=== PATIENT | male | born 1945 | race Caucasian/White ===

== ENCOUNTER 2017-09-22 13:20 | Inpatient (IN) | payer MEDICARE, OTHER ==
[2017-09-22] MEDS ORDERED: Non-Formulary Medication 1 Each (Sennosides [Senna] 2 TAB) PO PRN (15:26)
[2017-09-22] MEDS ORDERED: Albuterol 6.7 GM Inhaler INH PRN (15:26)
[2017-09-22] MEDS ORDERED: Clotrimazole 1% Crm 30 GM Tube TOP PRN (15:26)
[2017-09-22] MEDS ORDERED: Non-Formulary Medication 1 Each (Umeclidinium Brm/Vilanterol Tr [Anoro Ellipta 62.5-25 Mcg IH SCH (15:45)
[2017-09-22] MEDS ORDERED: Acetaminophen/HYDROcodone 325-5 MG Tab PO PRN (15:47)
--- NOTE | 2017-09-22 15:51 | PCM.HP ---
H&P History of Present Illness - General Date of Service: 09/22/17 - Related Data Allergies/Adverse Reactions: Allergies Allergy/AdvReac Type Severity Reaction Status Date / Time atorvastatin [From Lipitor] Allergy Muscle Verified 09/22/17 10:21 Aches metformin Allergy Diarrhea Verified 09/22/17 10:21 pravastatin Allergy Leg Cramps Verified 09/22/17 10:21 simvastatin Allergy Muscle Verified 09/22/17 10:21 Aches Home Medications: Home Meds Acetaminophen/HYDROcodone [[place] 325-5 MG] 1 tab PO Q6HR PRN 09/22/17 [History] Albuterol [Proventil HFA] 2 puff INH Q4H PRN 09/22/17 [History] Aspirin [Ecotrin] 325 mg PO DAILY 09/22/17 [History] Bumetanide 0.5 tab PO BID 09/22/17 [History] Clindamycin HCl 300 mg PO TID 09/22/17 [History] Clopidogrel [Plavix] 75 mg PO DAILY 09/22/17 [History] Clotrimazole [Jock Itch] 1 gm TP Q6HR PRN 09/22/17 [History] Docusate Sodium [Colace] 100 mg PO DAILY 09/22/17 [History] Insulin Aspart [NovoLOG] 2 unit SUBCUT TIDAC 09/22/17 [History] Insulin Glargine,Hum.Rec.Anlog [Lantus Solostar] 8 unit SQ BID 09/22/17 [History ] Metolazone [Zaroxolyn] 1.25 mg PO .EVERYOTHERDAY 09/22/17 [History] Metoprolol Succinate [Toprol XL] 100 mg PO DAILY 09/22/17 [History] Pregabalin [Lyrica] 75 mg PO BID 09/22/17 [History] Sennosides [Senna] 2 tab PO BID PRN 09/22/17 [History] Umeclidinium Brm/Vilanterol Tr [Anoro Ellipta 62.5-25 MCG] 1 puff IH DAILY 09/22 [History] Past Medical History Cardiovascular History: Reports: Afib, CAD Respiratory History: Reports: COPD Endocrine/Metabolic History: Reports: Diabetes, Type II Social & Family History - Family History Family Medical History: Noncontributory H&P Review of Systems - Review of Systems: Review Of Systems: See Below General: Denies: Fever Pulmonary: Denies: Shortness of Breath Cardiovascular: Denies: Chest Pain Gastrointestinal: Denies: Abdominal Pain Exam - Exam Exam: See Below - Vital Signs Vital Signs: Last Vital Signs Temp 36.7 C 09/22/17 14:11 Pulse 64 09/22/17 14:11 Resp 20 09/22/17 14:11 BP 145/80 H 09/22/17 14:11 Pulse Ox 97 09/22/17 14:11 Weight: 94.347 kg - Exam General: Alert, Oriented Neck: Supple Lungs: Decreased Breath Sounds Cardiovascular: Irregular Rhythm GI/Abdominal Exam: Normal Bowel Sounds, Soft, Non-Tender Extremities: No Pedal Edema Skin: Wound (left foot: heel, lataeral foot,medial 1st toe) *Q Meaningful Use (ADM) - VTE *Q VTE Criteria *Q: - Stroke *Q Stroke Criteria *Q: - AMI *Q AMI Criteria *Q: - Problem List (1) Diabetes SNOMED Code(s): 37683780 ICD Code: E11.9 - TYPE 2 DIABETES MELLITUS WITHOUT COMPLICATIONS Status: Acute Current Visit: Yes (2) Osteomyelitis SNOMED Code(s): 29524462 ICD Code: M86.9 - OSTEOMYELITIS, UNSPECIFIED Status: Acute Current Visit : Yes (3) Afib SNOMED Code(s): 46411846 ICD Code: I48.91 - UNSPECIFIED ATRIAL FIBRILLATION Status: Acute Current Visit: Yes (4) CAD (coronary artery disease) SNOMED Code(s): 33362468 ICD Code: I25.10 - ATHSCL HEART DISEASE OF [place] CORONARY ARTERY W/O ANG PCTRS Status: Acute Current Visit: Yes (5) PAD (peripheral artery disease) SNOMED Code(s): 674968720 ICD Code: I73.9 - PERIPHERAL VASCULAR DISEASE, UNSPECIFIED Status: Acute Current Visit: Yes Problem List Initiated/Reviewed/Updated: Yes Orders Last 24hrs: Active Orders 24 hr Category Date Time Status Wound Care [RC] Q8HPRN Care 09/22/17 15:42 Active BASIC METABOLIC PANEL,BMP [CHEM] AM Lab 09/23/17 05:15 Ordered CBC WITH AUTO DIFF [HEME] AM Lab 09/23/17 05:15 Ordered Acetaminophen/HYDROcodone [[place] 325-5 MG] Med 09/22/17 15:47 Ordered 1 tab PO Q6HR PRN Albuterol [Proventil HFA] Med 09/22/17 15:26 Active 0 gm INH Q4H PRN Aspirin [Ecotrin] Med 09/23/17 09:00 Active 325 mg PO DAILY Bumetanide [Bumex] Med 09/23/17 08:00 Active 0.5 mg PO BIDDIURETIC Clopidogrel [Plavix] Med 09/23/17 09:00 Active 75 mg PO DAILY Clotrimazole [Lotrimin AF 1% Crm] Med 09/22/17 15:26 Active 0 gm TOP Q6HR PRN DAPTOmycin [Cubicin] 500 mg Med 09/23/17 15:45 Ordered Sodium Chloride 0.9% [Normal Saline] 50 ml IV Q48H Docusate Sodium [Colace] Med 09/23/17 09:00 Active 100 mg PO DAILY Insulin Aspart [NovoLOG] Med 09/22/17 17:00 Active 2 unit SUBCUT TIDAC Insulin Detemir [Levemir] Med 09/22/17 21:00 Active 8 unit SUBCUT BID Metoprolol Succinate [Toprol XL] Med 09/23/17 09:00 Active 100 mg PO DAILY Pregabalin [Lyrica] Med 09/22/17 21:00 Active 75 mg PO BID Sennosides [Senna] Med 09/22/17 15:26 Ordered 2 tab PO BID PRN Umeclidinium Brm/Vilanterol Tr [Anoro Ellipta 62.5-25 Med 09/22/17 15:45 Ordered MCG] 1 puff IH DAILY Medication Orders Hydrocodone Bitart/Acetaminophen ([place] 325-5 Mg) 1 tab PO Q6HR PRN PRN Reason: Pain Albuterol (Proventil Hfa) 0 gm INH Q4H PRN PRN Reason: Shortness of Breath Aspirin (Ecotrin) 325 mg PO DAILY [facility] Bumetanide (Bumex) 0.5 mg PO BIDDIURETIC [facility] Clopidogrel Bisulfate (Plavix) 75 mg PO DAILY [facility] Clotrimazole (Lotrimin Af 1% Crm) 0 gm TOP Q6HR PRN PRN Reason: rash Docusate Sodium (Colace) 100 mg PO DAILY [facility] Daptomycin 500 mg/ Sodium (Chloride) 50 mls @ 100 mls/hr IV Q48H [facility] Insulin Aspart (Novolog) 2 unit SUBCUT TIDAC [facility] Insulin Detemir (Levemir) 8 unit SUBCUT BID [facility] Metoprolol Succinate (Toprol Xl) 100 mg PO DAILY [facility] Non-Formulary Medication (Sennosides [Senna]) 2 tab PO BID PRN PRN Reason: Constipation Non-Formulary Medication (Umeclidinium Brm/Vilanterol Tr [Anoro Ellipta 62.5-25 Mcg]) 1 puff IH DAILY [facility] Pregabalin (Lyrica) 75 mg PO BID [facility] Assessment/Plan Comment:: 1. Osteomyelitis enterobacter and enterococcus ID rec. Ertpenem and daptomycin check lft, bmp, cbc every tuesday 2. Afib rate control with metoprolol off anticoagulation while on asa, plavix 3. DM use lantus use supplemental insulin as needed 4. CAD, pad cont asa, plavix 5. dv prophylaxis pt/ot sq heparin
[2017-09-22] MEDS ORDERED: Acetaminophen 325 MG Tab PO PRN (16:51)
[2017-09-22] MEDS ORDERED: Zolpidem 5 MG Tab PO PRN (16:51)
[2017-09-22] MEDS: DAPTOmycin 500 MG in Sodium Chloride 0.9% 50 ML IV SCH (17:35)
[2017-09-22] MEDS: Sodium Chloride 0.9% 10 ML Syringe FLUSH PRN (17:36)
[2017-09-22] MEDS: Bumetanide 1 MG Tab PO SCH (17:46)
[2017-09-22] MEDS: Formoterol/Mometasone 200-5 MCG 8.8 GM Inhaler IH SCH (17:47)
[2017-09-22] MEDS: Insulin Aspart 100 Units/ML 3 ML Pen SUBCUT SCH ×2 (17:49→17:51)
[2017-09-22] MEDS: Pregabalin 75 MG Cap PO SCH (20:55)
[2017-09-22] MEDS: Insulin Detemir 100 Units/ML 3 ML Pen SUBCUT SCH (20:55)
[2017-09-22] MEDS: Heparin Sodium 5,000 Units/ML Vial SUBCUT SCH (21:44)
[2017-09-23] MEDS: Heparin Sodium 5,000 Units/ML Vial SUBCUT SCH ×3 (06:15→21:59)
[2017-09-23] MEDS: Insulin Aspart 100 Units/ML 3 ML Pen SUBCUT SCH ×6 (08:15→17:39)
[2017-09-23] MEDS: Formoterol/Mometasone 200-5 MCG 8.8 GM Inhaler IH SCH ×2 (08:27→17:47)
[2017-09-23] MEDS: Clopidogrel 75 MG Tab PO SCH (08:28)
[2017-09-23] MEDS: Docusate Sodium 100 MG Cap PO SCH (08:28)
[2017-09-23] MEDS: Pregabalin 75 MG Cap PO SCH ×2 (08:29→21:59)
[2017-09-23] MEDS: Aspirin 325 MG Tab.EC PO SCH (08:29)
[2017-09-23] MEDS: Metoprolol Succinate 50 MG Tab.ER PO SCH (08:29)
[2017-09-23] MEDS: Bumetanide 1 MG Tab PO SCH ×2 (08:30→14:25)
[2017-09-23] MEDS: Insulin Detemir 100 Units/ML 3 ML Pen SUBCUT SCH ×2 (08:32→21:57)
[2017-09-23] MEDS ORDERED: DAPTOmycin 500 MG in Sodium Chloride 0.9% 50 ML IV SCH ×2 (09:00→15:45)
[2017-09-23] MEDS: Sodium Polystyrene Sulfonate 15 GM/60 ML Susp 60 ML Bot PO SCH (10:52)
[2017-09-23] MEDS: Sodium Chloride 0.9% 10 ML Syringe FLUSH PRN (17:40)
[2017-09-24] MEDS: Heparin Sodium 5,000 Units/ML Vial SUBCUT SCH ×3 (06:40→21:22)
[2017-09-24] MEDS: Formoterol/Mometasone 200-5 MCG 8.8 GM Inhaler IH SCH ×2 (07:42→17:42)
[2017-09-24] MEDS: Bumetanide 1 MG Tab PO SCH ×2 (07:43→13:39)
[2017-09-24] MEDS: Insulin Aspart 100 Units/ML 3 ML Pen SUBCUT SCH ×6 (08:47→17:40)
[2017-09-24] MEDS: Insulin Detemir 100 Units/ML 3 ML Pen SUBCUT SCH ×2 (08:48→21:20)
[2017-09-24] MEDS: Clopidogrel 75 MG Tab PO SCH (08:56)
[2017-09-24] MEDS: Aspirin 325 MG Tab.EC PO SCH (08:56)
[2017-09-24] MEDS: Pregabalin 75 MG Cap PO SCH ×2 (08:56→20:26)
[2017-09-24] MEDS: Metoprolol Succinate 50 MG Tab.ER PO SCH (08:57)
[2017-09-24] MEDS: Docusate Sodium 100 MG Cap PO SCH (08:58)
[2017-09-24] MEDS: Sodium Chloride 0.9% 10 ML Syringe FLUSH PRN ×3 (17:11→18:39)
[2017-09-24] MEDS: DAPTOmycin 500 MG in Sodium Chloride 0.9% 50 ML IV SCH (17:11)
[2017-09-25] MEDS: Heparin Sodium 5,000 Units/ML Vial SUBCUT SCH (05:37)
[2017-09-25] MEDS: Formoterol/Mometasone 200-5 MCG 8.8 GM Inhaler IH SCH ×2 (06:13→17:58)
[2017-09-25] MEDS: Bumetanide 1 MG Tab PO SCH ×2 (08:42→14:21)
[2017-09-25] MEDS: Insulin Aspart 100 Units/ML 3 ML Pen SUBCUT SCH ×6 (08:42→18:21)
[2017-09-25] MEDS: Pregabalin 75 MG Cap PO SCH ×2 (08:43→20:45)
[2017-09-25] MEDS: Aspirin 325 MG Tab.EC PO SCH (08:44)
[2017-09-25] MEDS: Docusate Sodium 100 MG Cap PO SCH (08:44)
[2017-09-25] MEDS: Clopidogrel 75 MG Tab PO SCH (08:44)
[2017-09-25] MEDS: Metoprolol Succinate 50 MG Tab.ER PO SCH (08:45)
[2017-09-25] MEDS: Insulin Detemir 100 Units/ML 3 ML Pen SUBCUT SCH ×2 (08:48→21:12)
[2017-09-25] MEDS: Sodium Polystyrene Sulfonate 15 GM/60 ML Susp 60 ML Bot PO SCH (12:43)
[2017-09-25] MEDS: Sodium Chloride 0.9% 10 ML Syringe FLUSH PRN ×2 (18:02→21:34)
[2017-09-26] MEDS: Formoterol/Mometasone 200-5 MCG 8.8 GM Inhaler IH SCH ×2 (06:20→17:40)
[2017-09-26] MEDS: Pregabalin 75 MG Cap PO SCH ×2 (08:51→21:13)
[2017-09-26] MEDS: Docusate Sodium 100 MG Cap PO SCH (08:52)
[2017-09-26] MEDS: Clopidogrel 75 MG Tab PO SCH (08:52)
[2017-09-26] MEDS: Metoprolol Succinate 50 MG Tab.ER PO SCH (08:52)
[2017-09-26] MEDS: Aspirin 325 MG Tab.EC PO SCH (08:52)
[2017-09-26] MEDS: Bumetanide 1 MG Tab PO SCH ×2 (08:52→14:02)
[2017-09-26] MEDS: Insulin Aspart 100 Units/ML 3 ML Pen SUBCUT SCH ×6 (08:53→17:39)
[2017-09-26] MEDS: Enoxaparin 30 MG/0.3 ML Syringe SUBCUT SCH (08:53)
[2017-09-26] MEDS: Insulin Detemir 100 Units/ML 3 ML Pen SUBCUT SCH ×2 (08:55→21:14)
[2017-09-26] MEDS ORDERED: Potassium Chloride 10 MEQ Tab.ER PO ONE (09:57)
[2017-09-26] MEDS: DAPTOmycin 500 MG in Sodium Chloride 0.9% 50 ML IV SCH (17:04)
[2017-09-26] MEDS: Sodium Chloride 0.9% 10 ML Syringe FLUSH PRN ×3 (17:04→21:16)
[2017-09-27] MEDS: Formoterol/Mometasone 200-5 MCG 8.8 GM Inhaler IH SCH ×2 (06:26→18:13)
[2017-09-27] MEDS: Clopidogrel 75 MG Tab PO SCH (08:20)
[2017-09-27] MEDS: Bumetanide 1 MG Tab PO SCH ×2 (08:20→14:15)
[2017-09-27] MEDS: Metoprolol Succinate 50 MG Tab.ER PO SCH (08:22)
[2017-09-27] MEDS: Aspirin 325 MG Tab.EC PO SCH (08:22)
[2017-09-27] MEDS: Docusate Sodium 100 MG Cap PO SCH (08:22)
[2017-09-27] MEDS: Pregabalin 75 MG Cap PO SCH ×2 (08:22→21:20)
[2017-09-27] MEDS: Insulin Aspart 100 Units/ML 3 ML Pen SUBCUT SCH ×6 (08:23→17:31)
[2017-09-27] MEDS: Enoxaparin 30 MG/0.3 ML Syringe SUBCUT SCH (08:23)
[2017-09-27] MEDS: Insulin Detemir 100 Units/ML 3 ML Pen SUBCUT SCH ×2 (08:28→21:20)
[2017-09-27] MEDS: Sodium Chloride 0.9% 10 ML Syringe FLUSH PRN ×2 (18:11→21:43)
[2017-09-28] MEDS: Formoterol/Mometasone 200-5 MCG 8.8 GM Inhaler IH SCH ×2 (06:28→17:32)
[2017-09-28] MEDS: Pregabalin 75 MG Cap PO SCH ×2 (08:53→20:57)
[2017-09-28] MEDS: Aspirin 325 MG Tab.EC PO SCH (08:53)
[2017-09-28] MEDS: Clopidogrel 75 MG Tab PO SCH (08:53)
[2017-09-28] MEDS: Docusate Sodium 100 MG Cap PO SCH (08:53)
[2017-09-28] MEDS: Enoxaparin 30 MG/0.3 ML Syringe SUBCUT SCH (08:54)
[2017-09-28] MEDS: Bumetanide 1 MG Tab PO SCH ×2 (08:54→14:48)
[2017-09-28] MEDS: Metoprolol Succinate 50 MG Tab.ER PO SCH (09:01)
[2017-09-28] MEDS: Insulin Aspart 100 Units/ML 3 ML Pen SUBCUT SCH ×6 (09:03→17:30)
[2017-09-28] MEDS: Insulin Detemir 100 Units/ML 3 ML Pen SUBCUT SCH ×2 (09:04→20:56)
--- NOTE | 2017-09-28 11:29 | PCM.PN ---
- General Info Date of Service: 09/28/17 Subjective Update: Feeling okay, Did have a right lower extremity tingling in the toes. This is not a new symptom, has already had right lower extremity vascular evaluation a few weeks ago. No cough, no chest pain. - Review of Systems General: Reports: Weakness. Denies: Fever Pulmonary: Denies: Shortness of Breath Cardiovascular: Denies: Chest Pain Gastrointestinal: Denies: Abdominal Pain Neurological: Denies: Confusion - Patient Data Vitals - Most Recent: Last Vital Signs Temp 36.7 C 09/28/17 09:00 Pulse 83 09/28/17 09:01 Resp 20 09/28/17 07:00 BP 132/63 09/28/17 09:01 Pulse Ox 91 L 09/28/17 07:00 Weight - Most Recent: 94.256 kg I&O - Last 24 Hours: Intake & Output 09/27/17 09/28/17 09/28/17 22:59 06:59 14:59 Intake Total 245 375 Balance 245 375 Lab Results Last 24 Hours: Laboratory Results - last 24 hr 09/27/17 09/27/17 09/28/17 Range/Units 17:09 21:02 06:25 WBC 9.6 (5.0-10.0) 10^3/uL RBC 4.76 (4.6-6.2) 10^6/uL Hgb 12.8 L (14.0-18.0) g/dL Hct 39.8 L (40.0-54.0) % MCV 83.6 (80-100) fL MCH 26.9 L (27.0-34.0) pg MCHC 32.2 L (33.0-35.0) g/dL Plt Count 171 (150-450) 10^3/uL Neut % (Auto) 58.3 (42.2-75.2) % Lymph % (Auto) 21.3 (20.5-50.1) % [place] % (Auto) 15.5 H (2-8) % Eos % (Auto) 3.7 H (1.0-3.0) % Baso % (Auto) 1.2 H (0.0-1.0) % Sodium (135-145) mmol/L Potassium (3.6-5.0) mmol/L Chloride (101-111) mmol/L Carbon Dioxide (21.0-31.0) mmol/L Anion Gap BUN (7-18) mg/dL Creatinine (0.6-1.3) mg/dL Est Cr Clr Drug Dosing mL/min Estimated GFR (MDRD) Glucose (74-105) mg/dL POC Glucose 246 H 236 H (83-110) mg/dl Calcium (8.4-10.2) mg/dl 09/28/17 09/28/17 Range/Units 06:25 07:52 WBC (5.0-10.0) 10^3/uL RBC (4.6-6.2) 10^6/uL Hgb (14.0-18.0) g/dL Hct (40.0-54.0) % MCV (80-100) fL MCH (27.0-34.0) pg MCHC (33.0-35.0) g/dL Plt Count (150-450) 10^3/uL Neut % (Auto) (42.2-75.2) % Lymph % (Auto) (20.5-50.1) % [place] % (Auto) (2-8) % Eos % (Auto) (1.0-3.0) % Baso % (Auto) (0.0-1.0) % Sodium 136 (135-145) mmol/L Potassium 4.3 (3.6-5.0) mmol/L Chloride 92 L (101-111) mmol/L Carbon Dioxide 32.0 H (21.0-31.0) mmol/L Anion Gap 16.3 BUN 75 H (7-18) mg/dL Creatinine 2.5 H (0.6-1.3) mg/dL Est Cr Clr Drug Dosing 26.83 mL/min Estimated GFR (MDRD) 25 Glucose 155 H (74-105) mg/dL POC Glucose 141 H (83-110) mg/dl Calcium 8.9 (8.4-10.2) mg/dl Med Orders - Current: Current Medications Acetaminophen (Tylenol) 650 mg PO Q4H PRN PRN Reason: Pain (Mild 1-3)/fever Hydrocodone Bitart/Acetaminophen ([place] 325-5 Mg) 1 tab PO Q6HR PRN PRN Reason: Pain Albuterol (Proventil Hfa) 0 gm INH Q4H PRN PRN Reason: Shortness of Breath Last Admin: 09/22/17 18:43 Dose: 2 puff Aspirin (Ecotrin) 325 mg PO DAILY [facility] Last Admin: 09/28/17 08:53 Dose: 325 mg Bumetanide (Bumex) 0.5 mg PO BIDDIURETIC [facility] Last Admin: 09/28/17 08:54 Dose: 0.5 mg Clopidogrel Bisulfate (Plavix) 75 mg PO DAILY [facility] Last Admin: 09/28/17 08:53 Dose: 75 mg Clotrimazole (Lotrimin Af 1% Crm) 0 gm TOP Q6HR PRN PRN Reason: rash Docusate Sodium (Colace) 100 mg PO DAILY [facility] Last Admin: 09/28/17 08:53 Dose: 100 mg Enoxaparin Sodium (Lovenox) 30 mg SUBCUT DAILY [facility] Last Admin: 09/28/17 08:54 Dose: 30 mg Daptomycin 500 mg/ Sodium (Chloride) 50 mls @ 100 mls/hr IV Q48H [facility] Last Admin: 09/26/17 17:04 Dose: 100 mls/hr Ertapenem 0.5 gm/ Sodium (Chloride) 50 mls @ 100 mls/hr IV Q24H [facility] Last Infusion: 09/27/17 18:40 Dose: 100 mls/hr Insulin Aspart (Novolog) 2 unit SUBCUT TIDAC [facility] Last Admin: 09/28/17 09:03 Dose: 2 units Insulin Aspart (Novolog) 0 unit SUBCUT TIDAC [facility] PRN Reason: Protocol Last Admin: 09/28/17 09:04 Dose: Not Given Insulin Detemir (Levemir) 8 unit SUBCUT BID [facility] Last Admin: 09/28/17 09:04 Dose: 8 units Metoprolol Succinate (Toprol Xl) 100 mg PO DAILY [facility] Last Admin: 09/28/17 09:01 Dose: 100 mg Mometasone Furoate/Formoterol Fumar (Dulera 200-5 Mcg) 2 puff IH BIDRT [facility] Last Admin: 09/28/17 06:28 Dose: 2 puff Pregabalin (Lyrica) 75 mg PO BID [facility] Last Admin: 09/28/17 08:53 Dose: 75 mg Sodium Chloride (Saline Flush) 10 ml FLUSH ASDIRECTED PRN PRN Reason: Keep Vein Open Last Admin: 09/27/17 21:43 Dose: 10 ml Zolpidem Tartrate (Ambien) 5 mg PO BEDTIME PRN PRN Reason: Sleep Discontinued Medications Heparin Sodium (Porcine) (Heparin Sodium) 5,000 units SUBCUT Q8HR [facility] Last Admin: 09/25/17 05:37 Dose: 5,000 units Daptomycin 500 mg/ Sodium (Chloride) 50 mls @ 100 mls/hr IV Q48H [facility] Non-Formulary Medication (Sennosides [Senna]) 2 tab PO BID PRN PRN Reason: Constipation Non-Formulary Medication (Umeclidinium Brm/Vilanterol Tr [Anoro Ellipta 62.5-25 Mcg]) 1 puff IH DAILY [facility] Last Admin: 09/22/17 23:34 Dose: Not Given Potassium Chloride (Klor-Con 10) 20 meq PO ONETIME ONE Stop: 09/26/17 09:58 Last Admin: 09/26/17 11:08 Dose: 20 meq Sodium Polystyrene Sulfonate (Kayexalate) 15 gm PO Q48H [facility] Last Admin: 09/25/17 12:43 Dose: Not Given - Exam General: Alert, Oriented Neck: Supple Lungs: Clear to Auscultation, Normal Respiratory Effort Cardiovascular: Irregular Rhythm GI/Abdominal Exam: Normal Bowel Sounds, Soft, Non-Tender Extremities: No Pedal Edema, Other (Right lower extremity toes with reddish discoloration appears vascular stasis) - Problem List & Annotations (1) Diabetes SNOMED Code(s): 45250672 Code(s): E11.9 - TYPE 2 DIABETES MELLITUS WITHOUT COMPLICATIONS Status: Acute Current Visit: Yes (2) Osteomyelitis SNOMED Code(s): 51681908 Code(s): M86.9 - OSTEOMYELITIS, UNSPECIFIED Status: Acute Current Visit: Yes (3) Afib SNOMED Code(s): 31020564 Code(s): I48.91 - UNSPECIFIED ATRIAL FIBRILLATION Status: Acute Current Visit: Yes (4) CAD (coronary artery disease) SNOMED Code(s): 85474184 Code(s): I25.10 - ATHSCL HEART DISEASE OF [place] CORONARY ARTERY W/O ANG PCTRS Status: Acute Current Visit: Yes (5) PAD (peripheral artery disease) SNOMED Code(s): 182767948 Code(s): I73.9 - PERIPHERAL VASCULAR DISEASE, UNSPECIFIED Status: Acute Current Visit: Yes - Problem List Review Problem List Initiated/Reviewed/Updated: Yes - My Orders Last 24 Hours: My Active Orders 10/03/17 05:11 ALANINE AMINOTRANSFERASE,ALT [CHEM] AM ASPARTATE AMNIOTRANSFERASE,AST [CHEM] AM CPK [CREATINE KINASE,CK] [CHEM] AM CRP [C-REACTIVE PROTEIN] [CHEM] AM SEDIMENTATION RATE MANUAL [HEME] AM 10/03/17 05:15 BASIC METABOLIC PANEL,BMP [CHEM] AM CBC WITH AUTO DIFF [HEME] AM - Plan Plan:: 72-year-old gentleman who was admitted to swing bed for continued IV antibiotic for osteomyelitis. 1. Osteomyelitis enterobacter and enterococcus ID rec. Ertpenem and daptomycin check lft, bmp, cbc, cpk next tuesday 2. Afib rate control with metoprolol off anticoagulation while on asa, plavix 3. DM use lantus use supplemental insulin as needed 4. CAD, pad cont asa, plavix 5. dv prophylaxis pt/ot sq heparin 6. Chronic kidney disease stage III Creatinine remained stable 7. Has follow-up appointment with vascular surgery, ID.
[2017-09-28] MEDS: DAPTOmycin 500 MG in Sodium Chloride 0.9% 50 ML IV SCH (16:38)
[2017-09-29] MEDS: Bumetanide 1 MG Tab PO SCH ×2 (09:20→18:19)
[2017-09-29] MEDS: Clopidogrel 75 MG Tab PO SCH (09:21)
[2017-09-29] MEDS: Pregabalin 75 MG Cap PO SCH ×2 (09:21→20:35)
[2017-09-29] MEDS: Docusate Sodium 100 MG Cap PO SCH ×2 (09:21→20:36)
[2017-09-29] MEDS: Metoprolol Succinate 50 MG Tab.ER PO SCH (09:21)
[2017-09-29] MEDS: Aspirin 325 MG Tab.EC PO SCH (09:22)
[2017-09-29] MEDS: Insulin Detemir 100 Units/ML 3 ML Pen SUBCUT SCH ×2 (09:22→21:34)
[2017-09-29] MEDS: Enoxaparin 30 MG/0.3 ML Syringe SUBCUT SCH (09:23)
[2017-09-29] MEDS: Formoterol/Mometasone 200-5 MCG 8.8 GM Inhaler IH SCH ×2 (09:24→18:16)
[2017-09-29] MEDS: Insulin Aspart 100 Units/ML 3 ML Pen SUBCUT SCH ×6 (09:25→18:18)
[2017-09-29] MEDS: Sodium Chloride 0.9% 10 ML Syringe FLUSH PRN (18:20)
[2017-09-30] MEDS: Formoterol/Mometasone 200-5 MCG 8.8 GM Inhaler IH SCH ×2 (08:21→17:14)
[2017-09-30] MEDS: Bumetanide 1 MG Tab PO SCH ×2 (08:21→13:45)
[2017-09-30] MEDS: Docusate Sodium 100 MG Cap PO SCH ×2 (08:22→21:00)
[2017-09-30] MEDS: Metoprolol Succinate 50 MG Tab.ER PO SCH (08:23)
[2017-09-30] MEDS: Pregabalin 75 MG Cap PO SCH ×2 (08:23→21:00)
[2017-09-30] MEDS: Insulin Aspart 100 Units/ML 3 ML Pen SUBCUT SCH ×6 (08:24→17:22)
[2017-09-30] MEDS: Insulin Detemir 100 Units/ML 3 ML Pen SUBCUT SCH ×2 (08:26→21:00)
[2017-09-30] MEDS: Aspirin 325 MG Tab.EC PO SCH (09:28)
[2017-09-30] MEDS: Clopidogrel 75 MG Tab PO SCH (09:29)
[2017-09-30] MEDS: Enoxaparin 30 MG/0.3 ML Syringe SUBCUT SCH (12:14)
[2017-09-30] MEDS: Sodium Chloride 0.9% 10 ML Syringe FLUSH PRN ×2 (16:31→17:07)
[2017-09-30] MEDS: DAPTOmycin 500 MG in Sodium Chloride 0.9% 50 ML IV SCH (16:32)
[2017-10-01] MEDS: Formoterol/Mometasone 200-5 MCG 8.8 GM Inhaler IH SCH ×2 (09:25→18:08)
[2017-10-01] MEDS: Bumetanide 1 MG Tab PO SCH ×2 (09:25→13:47)
[2017-10-01] MEDS: Metoprolol Succinate 50 MG Tab.ER PO SCH (09:25)
[2017-10-01] MEDS: Docusate Sodium 100 MG Cap PO SCH ×2 (09:26→20:44)
[2017-10-01] MEDS: Insulin Detemir 100 Units/ML 3 ML Pen SUBCUT SCH ×2 (09:26→20:44)
[2017-10-01] MEDS: Insulin Aspart 100 Units/ML 3 ML Pen SUBCUT SCH ×6 (09:27→17:17)
[2017-10-01] MEDS: Pregabalin 75 MG Cap PO SCH ×2 (09:28→20:44)
[2017-10-01] MEDS ORDERED: Warfarin 5 MG Tab PO ONE (15:30)
[2017-10-01] MEDS: Sodium Chloride 0.9% 10 ML Syringe FLUSH PRN (18:09)
[2017-10-02] MEDS: Insulin Aspart 100 Units/ML 3 ML Pen SUBCUT SCH ×6 (08:12→17:08)
[2017-10-02] MEDS: Insulin Detemir 100 Units/ML 3 ML Pen SUBCUT SCH ×2 (08:12→21:05)
[2017-10-02] MEDS: Formoterol/Mometasone 200-5 MCG 8.8 GM Inhaler IH SCH ×2 (08:13→17:08)
[2017-10-02] MEDS: Bumetanide 1 MG Tab PO SCH ×2 (09:09→15:03)
[2017-10-02] MEDS: Metoprolol Succinate 50 MG Tab.ER PO SCH (09:10)
[2017-10-02] MEDS: Docusate Sodium 100 MG Cap PO SCH ×2 (09:11→21:05)
[2017-10-02] MEDS: Pregabalin 75 MG Cap PO SCH ×2 (09:11→21:05)
[2017-10-02] MEDS: Clopidogrel 75 MG Tab PO SCH (09:14)
[2017-10-02] MEDS: Aspirin 325 MG Tab.EC PO SCH (09:14)
[2017-10-02] MEDS ORDERED: Warfarin 5 MG Tab PO SCH (14:00)
[2017-10-02] MEDS: DAPTOmycin 500 MG in Sodium Chloride 0.9% 50 ML IV SCH (17:04)
[2017-10-02] MEDS: Sodium Chloride 0.9% 10 ML Syringe FLUSH PRN (17:05)
[2017-10-03] MEDS: Insulin Aspart 100 Units/ML 3 ML Pen SUBCUT SCH ×6 (08:27→18:13)
[2017-10-03] MEDS: Clopidogrel 75 MG Tab PO SCH (08:42)
[2017-10-03] MEDS: Pregabalin 75 MG Cap PO SCH ×2 (08:42→22:28)
[2017-10-03] MEDS: Metoprolol Succinate 50 MG Tab.ER PO SCH (08:43)
[2017-10-03] MEDS: Bumetanide 1 MG Tab PO SCH ×2 (08:43→14:55)
[2017-10-03] MEDS: Docusate Sodium 100 MG Cap PO SCH ×2 (08:43→22:28)
[2017-10-03] MEDS: Aspirin 325 MG Tab.EC PO SCH (08:43)
[2017-10-03] MEDS: Insulin Detemir 100 Units/ML 3 ML Pen SUBCUT SCH ×2 (08:44→22:28)
[2017-10-03] MEDS: Formoterol/Mometasone 200-5 MCG 8.8 GM Inhaler IH SCH ×2 (08:46→18:12)
[2017-10-03] MEDS ORDERED: Warfarin 5 MG Tab PO ONE (14:00)
[2017-10-04] MEDS: Insulin Aspart 100 Units/ML 3 ML Pen SUBCUT SCH ×6 (08:21→17:29)
[2017-10-04] MEDS: Formoterol/Mometasone 200-5 MCG 8.8 GM Inhaler IH SCH ×2 (08:22→17:31)
[2017-10-04] MEDS: Bumetanide 1 MG Tab PO SCH ×2 (08:46→13:04)
[2017-10-04] MEDS: Pregabalin 75 MG Cap PO SCH ×2 (08:47→21:38)
[2017-10-04] MEDS: Aspirin 325 MG Tab.EC PO SCH (08:47)
[2017-10-04] MEDS: Docusate Sodium 100 MG Cap PO SCH ×2 (08:47→21:38)
[2017-10-04] MEDS: Metoprolol Succinate 50 MG Tab.ER PO SCH (08:47)
[2017-10-04] MEDS: Clopidogrel 75 MG Tab PO SCH (08:47)
[2017-10-04] MEDS: Insulin Detemir 100 Units/ML 3 ML Pen SUBCUT SCH ×2 (08:48→21:38)
[2017-10-04] MEDS ORDERED: Metolazone 2.5 MG Tab PO ONE (11:37)
[2017-10-04] MEDS ORDERED: Warfarin 2.5 MG Tab PO ONE (14:00)
[2017-10-04] MEDS: Sodium Chloride 0.9% 10 ML Syringe FLUSH PRN ×2 (16:55→17:48)
[2017-10-04] MEDS: DAPTOmycin 500 MG in Sodium Chloride 0.9% 50 ML IV SCH (16:55)
[2017-10-05] MEDS: Formoterol/Mometasone 200-5 MCG 8.8 GM Inhaler IH SCH ×2 (09:17→17:30)
[2017-10-05] MEDS: Bumetanide 1 MG Tab PO SCH ×2 (09:18→15:42)
[2017-10-05] MEDS: Docusate Sodium 100 MG Cap PO SCH ×2 (09:20→22:39)
[2017-10-05] MEDS: Clopidogrel 75 MG Tab PO SCH (09:21)
[2017-10-05] MEDS: Aspirin 325 MG Tab.EC PO SCH (09:21)
[2017-10-05] MEDS: Pregabalin 75 MG Cap PO SCH ×2 (09:21→22:39)
[2017-10-05] MEDS: Metoprolol Succinate 50 MG Tab.ER PO SCH (09:22)
[2017-10-05] MEDS: Insulin Detemir 100 Units/ML 3 ML Pen SUBCUT SCH ×2 (09:23→22:40)
[2017-10-05] MEDS: Insulin Aspart 100 Units/ML 3 ML Pen SUBCUT SCH ×6 (09:25→17:35)
[2017-10-05] MEDS ORDERED: Warfarin 5 MG Tab PO ONE (14:00)
[2017-10-05] MEDS: Ertapenem 1 GM Vial IVPUSH SCH (17:30)
[2017-10-06] MEDS: Formoterol/Mometasone 200-5 MCG 8.8 GM Inhaler IH SCH ×2 (06:50→19:03)
[2017-10-06] MEDS: Insulin Aspart 100 Units/ML 3 ML Pen SUBCUT SCH ×6 (07:08→18:57)
[2017-10-06] MEDS: Insulin Detemir 100 Units/ML 3 ML Pen SUBCUT SCH ×3 (07:09→21:43)
[2017-10-06] MEDS: Bumetanide 1 MG Tab PO SCH ×2 (10:31→13:54)
[2017-10-06] MEDS: Aspirin 325 MG Tab.EC PO SCH (10:32)
[2017-10-06] MEDS: Docusate Sodium 100 MG Cap PO SCH ×2 (10:32→21:42)
[2017-10-06] MEDS: Clopidogrel 75 MG Tab PO SCH (10:33)
[2017-10-06] MEDS: Pregabalin 75 MG Cap PO SCH ×2 (10:33→21:42)
[2017-10-06] MEDS: Metoprolol Succinate 50 MG Tab.ER PO SCH (10:36)
[2017-10-06] MEDS ORDERED: Warfarin 5 MG Tab PO ONE ×2 (14:00→18:30)
[2017-10-06] MEDS: Ertapenem 1 GM Vial IVPUSH SCH (18:12)
[2017-10-06] MEDS: Sodium Chloride 0.9% 10 ML Syringe FLUSH PRN ×2 (18:12→19:02)
[2017-10-06] MEDS: DAPTOmycin 500 MG in Sodium Chloride 0.9% 50 ML IV SCH (19:02)
[2017-10-07] MEDS: Formoterol/Mometasone 200-5 MCG 8.8 GM Inhaler IH SCH ×2 (06:31→17:51)
[2017-10-07] MEDS: Insulin Aspart 100 Units/ML 3 ML Pen SUBCUT SCH ×6 (08:32→17:48)
[2017-10-07] MEDS: Bumetanide 1 MG Tab PO SCH ×2 (08:39→14:11)
[2017-10-07] MEDS: Insulin Detemir 100 Units/ML 3 ML Pen SUBCUT SCH ×2 (10:25→21:21)
[2017-10-07] MEDS: Docusate Sodium 100 MG Cap PO SCH ×2 (10:27→21:20)
[2017-10-07] MEDS: Clopidogrel 75 MG Tab PO SCH (10:28)
[2017-10-07] MEDS: Aspirin 325 MG Tab.EC PO SCH (10:28)
[2017-10-07] MEDS: Pregabalin 75 MG Cap PO SCH ×2 (10:28→21:20)
--- NOTE | 2017-10-07 11:12 | PCM.PN ---
- General Info Date of Service: 10/07/17 Subjective Update: Feeling okay, Yesterday had a visit with his surgeon and cardiology. A few medication changes are suggested. No shortness of breath. His weight varies up and down a few pounds. No cough, no chest pain. Functional Status: Reports: Pain Controlled - Review of Systems General: Reports: Weakness. Denies: Fever Pulmonary: Denies: Shortness of Breath Cardiovascular: Denies: Chest Pain Gastrointestinal: Denies: Abdominal Pain Neurological: Denies: Confusion - Patient Data Vitals - Most Recent: Last Vital Signs Temp 36.6 C 10/07/17 07:00 Pulse 75 10/07/17 07:00 Resp 20 10/07/17 07:00 BP 122/80 10/07/17 07:00 Pulse Ox 97 10/07/17 07:00 Weight - Most Recent: 94.982 kg I&O - Last 24 Hours: Intake & Output 10/06/17 10/07/17 10/07/17 22:59 06:59 14:59 Intake Total 600 300 Output Total 400 600 Balance 200 -300 Lab Results Last 24 Hours: Laboratory Results - last 24 hr 10/06/17 10/06/17 10/07/17 Range/Units 18:10 21:13 05:50 PT 17.3 H (9.0-12.0) SEC INR 1.7 H (0.9-1.2) POC Glucose 136 H 212 H (83-110) mg/dl 10/07/17 10/07/17 Range/Units 08:03 10:52 PT (9.0-12.0) SEC INR (0.9-1.2) POC Glucose 143 H 173 H (83-110) mg/dl Med Orders - Current: Current Medications Acetaminophen (Tylenol) 650 mg PO Q4H PRN PRN Reason: Pain (Mild 1-3)/fever Hydrocodone Bitart/Acetaminophen ([place] 325-5 Mg) 1 tab PO Q6HR PRN PRN Reason: Pain Albuterol (Proventil Hfa) 0 gm INH Q4H PRN PRN Reason: Shortness of Breath Last Admin: 09/22/17 18:43 Dose: 2 puff Bumetanide (Bumex) 0.5 mg PO BIDDIURETIC [facility] Last Admin: 10/07/17 08:39 Dose: 0.5 mg Clopidogrel Bisulfate (Plavix) 75 mg PO DAILY [facility] Last Admin: 10/07/17 10:28 Dose: 75 mg Clotrimazole (Lotrimin Af 1% Crm) 0 gm TOP Q6HR PRN PRN Reason: rash Daptomycin (Cubicin) 500 mg IV Q48H [facility] Docusate Sodium (Colace) 100 mg PO BID [facility] Last Admin: 10/07/17 10:27 Dose: 100 mg Ertapenem (Invanz) 0.5 gm IVPUSH Q24H [facility] Last Admin: 10/06/17 18:12 Dose: 0.5 gm Insulin Aspart (Novolog) 2 unit SUBCUT TIDAC [facility] Last Admin: 10/07/17 08:40 Dose: 2 units Insulin Aspart (Novolog) 0 unit SUBCUT TIDAC [facility] PRN Reason: Protocol Last Admin: 10/07/17 08:32 Dose: Not Given Insulin Detemir (Levemir) 8 unit SUBCUT BID [facility] Last Admin: 10/07/17 10:25 Dose: 8 units Metoprolol Succinate (Toprol Xl) 125 mg PO DAILY [facility] Mometasone Furoate/Formoterol Fumar (Dulera 200-5 Mcg) 2 puff IH BIDRT [facility] Last Admin: 10/07/17 06:31 Dose: 2 puff Pregabalin (Lyrica) 75 mg PO BID [facility] Last Admin: 10/07/17 10:28 Dose: 75 mg Sodium Chloride (Saline Flush) 10 ml FLUSH ASDIRECTED PRN PRN Reason: Keep Vein Open Last Admin: 10/06/17 19:02 Dose: 10 ml Warfarin Sodium (Pharmacy To Dose - Warfarin) 1 dose .XX ASDIRECTED [facility] Zolpidem Tartrate (Ambien) 5 mg PO BEDTIME PRN PRN Reason: Sleep Discontinued Medications Aspirin (Ecotrin) 325 mg PO DAILY [facility] Last Admin: 10/07/17 10:28 Dose: 325 mg Docusate Sodium (Colace) 100 mg PO DAILY [facility] Last Admin: 09/28/17 08:53 Dose: 100 mg Enoxaparin Sodium (Lovenox) 30 mg SUBCUT DAILY [facility] Last Admin: 09/30/17 12:14 Dose: Not Given Heparin Sodium (Porcine) (Heparin Sodium) 5,000 units SUBCUT Q8HR [facility] Last Admin: 09/25/17 05:37 Dose: 5,000 units Daptomycin 500 mg/ Sodium (Chloride) 50 mls @ 100 mls/hr IV Q48H [facility] Daptomycin 500 mg/ Sodium (Chloride) 50 mls @ 100 mls/hr IV Q48H [facility] Last Admin: 10/06/17 19:02 Dose: 100 mls/hr Ertapenem 0.5 gm/ Sodium (Chloride) 50 mls @ 100 mls/hr IV Q24H [facility] Last Infusion: 10/04/17 18:20 Dose: Infused Metolazone (Zaroxolyn) 1.25 mg PO ONETIME ONE Stop: 10/04/17 11:38 Last Admin: 10/04/17 13:05 Dose: 1.25 mg Metoprolol Succinate (Toprol Xl) 100 mg PO DAILY [facility] Last Admin: 10/06/17 10:36 Dose: 100 mg Non-Formulary Medication (Sennosides [Senna]) 2 tab PO BID PRN PRN Reason: Constipation Non-Formulary Medication (Umeclidinium Brm/Vilanterol Tr [Anoro Ellipta 62.5-25 Mcg]) 1 puff IH DAILY [facility] Last Admin: 09/22/17 23:34 Dose: Not Given Potassium Chloride (Klor-Con 10) 20 meq PO ONETIME ONE Stop: 09/26/17 09:58 Last Admin: 09/26/17 11:08 Dose: 20 meq Sodium Polystyrene Sulfonate (Kayexalate) 15 gm PO Q48H [facility] Last Admin: 09/25/17 12:43 Dose: Not Given Warfarin Sodium (Coumadin) 5 mg PO ONETIME ONE Stop: 10/01/17 15:31 Last Admin: 10/01/17 16:24 Dose: 5 mg Warfarin Sodium (Coumadin) 5 mg PO DAILY@1400 [facility] Stop: 10/02/17 14:01 Last Admin: 10/02/17 15:02 Dose: 5 mg Warfarin Sodium (Coumadin) 5 mg PO ONETIME ONE Stop: 10/03/17 14:01 Last Admin: 10/03/17 14:54 Dose: 5 mg Warfarin Sodium (Coumadin) 7.5 mg PO ONETIME ONE Stop: 10/04/17 14:01 Last Admin: 10/04/17 13:04 Dose: 7.5 mg Warfarin Sodium (Coumadin) 10 mg PO ONETIME ONE Stop: 10/05/17 14:01 Last Admin: 10/05/17 15:42 Dose: 10 mg Warfarin Sodium (Coumadin) 10 mg PO ONETIME ONE Stop: 10/06/17 14:01 Last Admin: 10/06/17 18:56 Dose: Not Given Warfarin Sodium (Coumadin) 10 mg PO ONETIME ONE Stop: 10/06/17 18:31 Last Admin: 10/06/17 18:55 Dose: 10 mg - Exam General: Alert, Oriented Lungs: Normal Respiratory Effort, Decreased Breath Sounds Cardiovascular: Irregular Rhythm. No: Tachycardia GI/Abdominal Exam: Normal Bowel Sounds, Soft, Non-Tender Extremities: Pedal Edema - Problem List & Annotations (1) Diabetes SNOMED Code(s): 88049610 Code(s): E11.9 - TYPE 2 DIABETES MELLITUS WITHOUT COMPLICATIONS Status: Acute Current Visit: Yes (2) Osteomyelitis SNOMED Code(s): 06731178 Code(s): M86.9 - OSTEOMYELITIS, UNSPECIFIED Status: Acute Current Visit: Yes (3) Afib SNOMED Code(s): 44041358 Code(s): I48.91 - UNSPECIFIED ATRIAL FIBRILLATION Status: Acute Current Visit: Yes (4) CAD (coronary artery disease) SNOMED Code(s): 58598504 Code(s): I25.10 - ATHSCL HEART DISEASE OF [place] CORONARY ARTERY W/O ANG PCTRS Status: Acute Current Visit: Yes (5) PAD (peripheral artery disease) SNOMED Code(s): 882568322 Code(s): I73.9 - PERIPHERAL VASCULAR DISEASE, UNSPECIFIED Status: Acute Current Visit: Yes - Problem List Review Problem List Initiated/Reviewed/Updated: Yes - My Orders Last 24 Hours: My Active Orders 10/08/17 11:08 Metoprolol Succinate [Toprol XL] 125 mg PO DAILY - Plan Plan:: 72-year-old gentleman who was admitted to swing bed for continued IV antibiotic for osteomyelitis. 1. Osteomyelitis enterobacter and enterococcus ID rec. Ertpenem and daptomycin check lft, bmp, cbc, cpk periodically 2. Afib rate control with metoprolol cardiology was recommending to increase dose to 125 mg daily, stop asa cont coumadin, plavix 3. DM use lantus use supplemental insulin as needed 4. CAD, pad cont plavix 5. dv prophylaxis pt/ot sq heparin 6. Chronic kidney disease stage III monitor Creatinine
[2017-10-07] MEDS: Metoprolol Succinate 50 MG Tab.ER PO SCH ×2 (11:18→12:08)
[2017-10-07] MEDS ORDERED: Warfarin 5 MG Tab PO ONE (14:00)
[2017-10-07] MEDS: Ertapenem 1 GM Vial IVPUSH SCH (17:51)
[2017-10-07] MEDS: Sodium Chloride 0.9% 10 ML Syringe FLUSH PRN (17:52)
[2017-10-08] MEDS: Formoterol/Mometasone 200-5 MCG 8.8 GM Inhaler IH SCH (07:01)
[2017-10-08] MEDS: Insulin Aspart 100 Units/ML 3 ML Pen SUBCUT SCH ×6 (08:14→18:04)
[2017-10-08] MEDS: Bumetanide 1 MG Tab PO SCH ×2 (08:46→14:52)
[2017-10-08] MEDS: Insulin Detemir 100 Units/ML 3 ML Pen SUBCUT SCH ×2 (08:48→21:48)
[2017-10-08] MEDS: Sodium Chloride 0.9% 10 ML Syringe FLUSH PRN ×3 (08:50→18:14)
[2017-10-08] MEDS: Clopidogrel 75 MG Tab PO SCH (10:01)
[2017-10-08] MEDS: Docusate Sodium 100 MG Cap PO SCH ×2 (10:02→21:47)
[2017-10-08] MEDS: Pregabalin 75 MG Cap PO SCH ×2 (10:02→21:47)
[2017-10-08] MEDS: Metoprolol Succinate 50 MG Tab.ER PO SCH (10:02)
[2017-10-08] MEDS ORDERED: Metoprolol Succinate 50 MG Tab.ER PO SCH (11:08)
[2017-10-08] MEDS: [UNRECOGNIZED DRUG - OTHER] INH SCH (12:29)
[2017-10-08] MEDS ORDERED: Warfarin 5 MG Tab PO ONE (14:00)
[2017-10-08] MEDS: Ertapenem 1 GM Vial IVPUSH SCH (18:07)
[2017-10-08] MEDS: DAPTOmycin 500 MG Vial IV SCH (18:07)
[2017-10-09] MEDS: Insulin Aspart 100 Units/ML 3 ML Pen SUBCUT SCH ×6 (08:08→17:30)
[2017-10-09] MEDS: Bumetanide 1 MG Tab PO SCH ×2 (08:52→14:28)
[2017-10-09] MEDS: Insulin Detemir 100 Units/ML 3 ML Pen SUBCUT SCH ×2 (08:54→21:26)
[2017-10-09] MEDS: Clopidogrel 75 MG Tab PO SCH (10:03)
[2017-10-09] MEDS: Docusate Sodium 100 MG Cap PO SCH ×2 (10:03→21:26)
[2017-10-09] MEDS: Metoprolol Succinate 50 MG Tab.ER PO SCH (10:04)
[2017-10-09] MEDS: Pregabalin 75 MG Cap PO SCH ×2 (10:04→21:26)
[2017-10-09] MEDS: [UNRECOGNIZED DRUG - OTHER] INH SCH (10:06)
[2017-10-09] MEDS ORDERED: Warfarin 2.5 MG Tab PO SCH (14:00)
[2017-10-09] MEDS: Sodium Chloride 0.9% 10 ML Syringe FLUSH PRN ×2 (14:29→17:33)
[2017-10-09] MEDS: Ertapenem 1 GM Vial IVPUSH SCH (17:32)
[2017-10-10] MEDS: Insulin Aspart 100 Units/ML 3 ML Pen SUBCUT SCH ×6 (08:43→18:34)
[2017-10-10] MEDS: Bumetanide 1 MG Tab PO SCH ×2 (08:43→14:12)
[2017-10-10] MEDS: Insulin Detemir 100 Units/ML 3 ML Pen SUBCUT SCH ×2 (08:45→21:17)
[2017-10-10] MEDS: Sodium Chloride 0.9% 10 ML Syringe FLUSH PRN ×2 (08:47→18:28)
[2017-10-10] MEDS: Pregabalin 75 MG Cap PO SCH ×2 (09:36→20:37)
[2017-10-10] MEDS: Metoprolol Succinate 50 MG Tab.ER PO SCH (09:37)
[2017-10-10] MEDS: Clopidogrel 75 MG Tab PO SCH (09:37)
[2017-10-10] MEDS: Docusate Sodium 100 MG Cap PO SCH ×2 (09:38→20:37)
[2017-10-10] MEDS: [UNRECOGNIZED DRUG - OTHER] INH SCH (09:39)
--- NOTE | 2017-10-10 12:45 | PCM.PN ---
- General Info Date of Service: 10/10/17 Subjective Update: Feeling well Weight is variable but does not feel he has more than usual swelling, elevate is not going up consistently. No shortness of breath. No cough, no chest pain. Functional Status: Reports: Pain Controlled - Review of Systems General: Denies: Fever Pulmonary: Denies: Shortness of Breath Cardiovascular: Denies: Chest Pain Genitourinary: Denies: Dysuria Neurological: Denies: Confusion - Patient Data Vitals - Most Recent: Last Vital Signs Temp 36.8 C 10/10/17 07:58 Pulse 78 10/10/17 09:37 Resp 20 10/10/17 07:58 BP 128/80 10/10/17 09:37 Pulse Ox 95 10/10/17 07:58 Weight - Most Recent: 96.524 kg I&O - Last 24 Hours: Intake & Output 10/09/17 10/10/17 10/10/17 22:59 06:59 14:59 Intake Total 1580 300 325 Output Total 1000 300 Balance 580 0 325 Lab Results Last 24 Hours: Laboratory Results - last 24 hr 10/09/17 10/09/17 10/10/17 Range/Units 16:57 21:12 06:00 WBC (5.0-10.0) 10^3/uL RBC (4.6-6.2) 10^6/uL Hgb (14.0-18.0) g/dL Hct (40.0-54.0) % MCV (80-100) fL MCH (27.0-34.0) pg MCHC (33.0-35.0) g/dL Plt Count (150-450) 10^3/uL Neut % (Auto) (42.2-75.2) % Lymph % (Auto) (20.5-50.1) % [place] % (Auto) (2-8) % Eos % (Auto) (1.0-3.0) % Baso % (Auto) (0.0-1.0) % PT 39.0 H D (9.0-12.0) SEC INR 3.9 H (0.9-1.2) Creatinine (0.6-1.3) mg/dL Est Cr Clr Drug Dosing mL/min Estimated GFR (MDRD) POC Glucose 95 150 H (83-110) mg/dl AST (10-42) IU/L Creatine Kinase (26-174) IU/L 10/10/17 10/10/17 10/10/17 Range/Units 06:00 06:00 07:57 WBC 8.6 (5.0-10.0) 10^3/uL RBC 5.31 (4.6-6.2) 10^6/uL Hgb 13.9 L (14.0-18.0) g/dL Hct 42.0 (40.0-54.0) % MCV 79.1 L (80-100) fL MCH 26.2 L (27.0-34.0) pg MCHC 33.1 (33.0-35.0) g/dL Plt Count 160 (150-450) 10^3/uL Neut % (Auto) 53.2 (42.2-75.2) % Lymph % (Auto) 24.7 (20.5-50.1) % [place] % (Auto) 15.9 H (2-8) % Eos % (Auto) 3.6 H (1.0-3.0) % Baso % (Auto) 2.6 H (0.0-1.0) % PT (9.0-12.0) SEC INR (0.9-1.2) Creatinine 2.2 H (0.6-1.3) mg/dL Est Cr Clr Drug Dosing 30.49 mL/min Estimated GFR (MDRD) 29 POC Glucose 79 L (83-110) mg/dl AST 32 (10-42) IU/L Creatine Kinase 41 (26-174) IU/L 10/10/17 Range/Units 11:17 WBC (5.0-10.0) 10^3/uL RBC (4.6-6.2) 10^6/uL Hgb (14.0-18.0) g/dL Hct (40.0-54.0) % MCV (80-100) fL MCH (27.0-34.0) pg MCHC (33.0-35.0) g/dL Plt Count (150-450) 10^3/uL Neut % (Auto) (42.2-75.2) % Lymph % (Auto) (20.5-50.1) % [place] % (Auto) (2-8) % Eos % (Auto) (1.0-3.0) % Baso % (Auto) (0.0-1.0) % PT (9.0-12.0) SEC INR (0.9-1.2) Creatinine (0.6-1.3) mg/dL Est Cr Clr Drug Dosing mL/min Estimated GFR (MDRD) POC Glucose 141 H (83-110) mg/dl AST (10-42) IU/L Creatine Kinase (26-174) IU/L Med Orders - Current: Current Medications Acetaminophen (Tylenol) 650 mg PO Q4H PRN PRN Reason: Pain (Mild 1-3)/fever Hydrocodone Bitart/Acetaminophen ([place] 325-5 Mg) 1 tab PO Q6HR PRN PRN Reason: Pain Albuterol (Proventil Hfa) 0 gm INH Q4H PRN PRN Reason: Shortness of Breath Last Admin: 09/22/17 18:43 Dose: 2 puff Bumetanide (Bumex) 0.5 mg PO BIDDIURETIC [facility] Last Admin: 10/10/17 08:43 Dose: 0.5 mg Clopidogrel Bisulfate (Plavix) 75 mg PO DAILY [facility] Last Admin: 10/10/17 09:37 Dose: 75 mg Clotrimazole (Lotrimin Af 1% Crm) 0 gm TOP Q6HR PRN PRN Reason: rash Daptomycin (Cubicin) 500 mg IV Q48H [facility] Last Admin: 10/08/17 18:07 Dose: 500 mg Docusate Sodium (Colace) 100 mg PO BID [facility] Last Admin: 10/10/17 09:38 Dose: 100 mg Ertapenem (Invanz) 0.5 gm IVPUSH Q24H [facility] Last Admin: 10/09/17 17:32 Dose: 0.5 gm Insulin Aspart (Novolog) 2 unit SUBCUT TIDAC [facility] Last Admin: 10/10/17 08:43 Dose: 2 units Insulin Aspart (Novolog) 0 unit SUBCUT TIDAC [facility] PRN Reason: Protocol Last Admin: 10/10/17 08:44 Dose: Not Given Insulin Detemir (Levemir) 8 unit SUBCUT BID [facility] Last Admin: 10/10/17 08:45 Dose: 8 units Metoprolol Succinate (Toprol Xl) 125 mg PO DAILY [facility] Last Admin: 12/04/17 09:37 Dose: 125 mg Anor0 62.5/25mcg (Inhaler Own Med) 0 each INH DAILY [facility] Last Admin: 10/10/17 09:39 Dose: Not Given No Warfarin (Today ) 0 each PO ONETIME ONE Stop: 10/10/17 14:01 Pregabalin (Lyrica) 75 mg PO BID [facility] Last Admin: 10/10/17 09:36 Dose: 75 mg Sodium Chloride (Saline Flush) 10 ml FLUSH ASDIRECTED PRN PRN Reason: Keep Vein Open Last Admin: 10/10/17 08:47 Dose: 10 ml Warfarin Sodium (Pharmacy To Dose - Warfarin) 1 dose .XX ASDIRECTED [facility] Zolpidem Tartrate (Ambien) 5 mg PO BEDTIME PRN PRN Reason: Sleep Discontinued Medications Aspirin (Ecotrin) 325 mg PO DAILY [facility] Last Admin: 10/07/17 10:28 Dose: 325 mg Docusate Sodium (Colace) 100 mg PO DAILY [facility] Last Admin: 09/28/17 08:53 Dose: 100 mg Enoxaparin Sodium (Lovenox) 30 mg SUBCUT DAILY [facility] Last Admin: 09/30/17 12:14 Dose: Not Given Heparin Sodium (Porcine) (Heparin Sodium) 5,000 units SUBCUT Q8HR [facility] Last Admin: 09/25/17 05:37 Dose: 5,000 units Daptomycin 500 mg/ Sodium (Chloride) 50 mls @ 100 mls/hr IV Q48H [facility] Daptomycin 500 mg/ Sodium (Chloride) 50 mls @ 100 mls/hr IV Q48H [facility] Last Admin: 10/06/17 19:02 Dose: 100 mls/hr Ertapenem 0.5 gm/ Sodium (Chloride) 50 mls @ 100 mls/hr IV Q24H [facility] Last Infusion: 10/04/17 18:20 Dose: Infused Metolazone (Zaroxolyn) 1.25 mg PO ONETIME ONE Stop: 10/04/17 11:38 Last Admin: 10/04/17 13:05 Dose: 1.25 mg Metoprolol Succinate (Toprol Xl) 100 mg PO DAILY [facility] Last Admin: 10/07/17 11:18 Dose: Not Given Metoprolol Succinate (Toprol Xl) 125 mg PO DAILY [facility] Mometasone Furoate/Formoterol Fumar (Dulera 200-5 Mcg) 2 puff IH BIDRT [facility] Last Admin: 10/08/17 07:01 Dose: Not Given Non-Formulary Medication (Sennosides [Senna]) 2 tab PO BID PRN PRN Reason: Constipation Non-Formulary Medication (Umeclidinium Brm/Vilanterol Tr [Anoro Ellipta 62.5-25 Mcg]) 1 puff IH DAILY [facility] Last Admin: 09/22/17 23:34 Dose: Not Given Potassium Chloride (Klor-Con 10) 20 meq PO ONETIME ONE Stop: 09/26/17 09:58 Last Admin: 09/26/17 11:08 Dose: 20 meq Sodium Polystyrene Sulfonate (Kayexalate) 15 gm PO Q48H [facility] Last Admin: 09/25/17 12:43 Dose: Not Given Warfarin Sodium (Coumadin) 5 mg PO ONETIME ONE Stop: 10/01/17 15:31 Last Admin: 10/01/17 16:24 Dose: 5 mg Warfarin Sodium (Coumadin) 5 mg PO DAILY@1400 [facility] Stop: 10/02/17 14:01 Last Admin: 10/02/17 15:02 Dose: 5 mg Warfarin Sodium (Coumadin) 5 mg PO ONETIME ONE Stop: 10/03/17 14:01 Last Admin: 10/03/17 14:54 Dose: 5 mg Warfarin Sodium (Coumadin) 7.5 mg PO ONETIME ONE Stop: 10/04/17 14:01 Last Admin: 10/04/17 13:04 Dose: 7.5 mg Warfarin Sodium (Coumadin) 10 mg PO ONETIME ONE Stop: 10/05/17 14:01 Last Admin: 10/05/17 15:42 Dose: 10 mg Warfarin Sodium (Coumadin) 10 mg PO ONETIME ONE Stop: 10/06/17 14:01 Last Admin: 10/06/17 18:56 Dose: Not Given Warfarin Sodium (Coumadin) 10 mg PO ONETIME ONE Stop: 10/06/17 18:31 Last Admin: 10/06/17 18:55 Dose: 10 mg Warfarin Sodium (Coumadin) 10 mg PO ONETIME ONE Stop: 10/07/17 14:01 Last Admin: 10/07/17 14:12 Dose: 10 mg Warfarin Sodium (Coumadin) 10 mg PO ONETIME ONE Stop: 10/08/17 14:01 Last Admin: 10/08/17 14:54 Dose: 10 mg Warfarin Sodium (Coumadin) 7.5 mg PO DAILY@1400 [facility] Stop: 10/09/17 14:01 Last Admin: 10/09/17 14:27 Dose: 7.5 mg - Exam General: Alert, Oriented Neck: Supple Lungs: Normal Respiratory Effort, Decreased Breath Sounds Cardiovascular: Irregular Rhythm Extremities: Pedal Edema (1+) - Problem List & Annotations (1) Diabetes SNOMED Code(s): 55360788 Code(s): E11.9 - TYPE 2 DIABETES MELLITUS WITHOUT COMPLICATIONS Status: Acute Current Visit: Yes (2) Osteomyelitis SNOMED Code(s): 78921886 Code(s): M86.9 - OSTEOMYELITIS, UNSPECIFIED Status: Acute Current Visit: Yes (3) Afib SNOMED Code(s): 51259128 Code(s): I48.91 - UNSPECIFIED ATRIAL FIBRILLATION Status: Acute Current Visit: Yes (4) CAD (coronary artery disease) SNOMED Code(s): 92804079 Code(s): I25.10 - ATHSCL HEART DISEASE OF [place] CORONARY ARTERY W/O ANG PCTRS Status: Acute Current Visit: Yes (5) PAD (peripheral artery disease) SNOMED Code(s): 219445969 Code(s): I73.9 - PERIPHERAL VASCULAR DISEASE, UNSPECIFIED Status: Acute Current Visit: Yes - Problem List Review Problem List Initiated/Reviewed/Updated: Yes - My Orders Last 24 Hours: My Active Orders 10/11/17 06:00 INR,PT,PROTHROMBIN TIME [COAG] DAILY 10/12/17 06:00 INR,PT,PROTHROMBIN TIME [COAG] DAILY 10/13/17 06:00 INR,PT,PROTHROMBIN TIME [COAG] DAILY 10/14/17 06:00 INR,PT,PROTHROMBIN TIME [COAG] DAILY 10/15/17 06:00 INR,PT,PROTHROMBIN TIME [COAG] DAILY 10/16/17 06:00 INR,PT,PROTHROMBIN TIME [COAG] DAILY 10/17/17 06:00 INR,PT,PROTHROMBIN TIME [COAG] DAILY - Plan Plan:: 72-year-old gentleman who was admitted to [facility] bed for continued IV antibiotic for osteomyelitis. 1. Osteomyelitis enterobacter and enterococcus ID rec. Ertpenem and daptomycin stable check lft, bmp, cbc, cpk periodically 2. Afib rate control with metoprolol cardiology was recommending to increase dose to 125 mg daily, stop asa cont coumadin, plavix 3. DM use lantus use supplemental insulin as needed 4. CAD, pad cont plavix 5. dv prophylaxis pt/ot sq heparin 6. Chronic kidney disease stage III monitor Creatinine -stable now
[2017-10-10] MEDS: DAPTOmycin 500 MG Vial IV SCH (18:28)
[2017-10-10] MEDS: Ertapenem 1 GM Vial IVPUSH SCH (18:34)
[2017-10-11] MEDS: Bumetanide 1 MG Tab PO SCH ×2 (08:30→13:21)
[2017-10-11] MEDS: Insulin Aspart 100 Units/ML 3 ML Pen SUBCUT SCH ×6 (08:31→17:34)
[2017-10-11] MEDS: Insulin Detemir 100 Units/ML 3 ML Pen SUBCUT SCH ×2 (08:32→21:50)
[2017-10-11] MEDS: Pregabalin 75 MG Cap PO SCH ×2 (08:33→21:50)
[2017-10-11] MEDS: Docusate Sodium 100 MG Cap PO SCH ×2 (08:33→21:50)
[2017-10-11] MEDS: Clopidogrel 75 MG Tab PO SCH (08:33)
[2017-10-11] MEDS: Metoprolol Succinate 50 MG Tab.ER PO SCH (08:34)
[2017-10-11] MEDS: [UNRECOGNIZED DRUG - OTHER] INH SCH (08:35)
[2017-10-11] MEDS: Sodium Chloride 0.9% 10 ML Syringe FLUSH PRN (17:34)
[2017-10-11] MEDS: Ertapenem 1 GM Vial IVPUSH SCH (17:35)
[2017-10-12] MEDS: Insulin Aspart 100 Units/ML 3 ML Pen SUBCUT SCH ×6 (08:02→17:53)
[2017-10-12] MEDS: Insulin Detemir 100 Units/ML 3 ML Pen SUBCUT SCH ×2 (08:41→21:05)
[2017-10-12] MEDS: Metoprolol Succinate 50 MG Tab.ER PO SCH (08:42)
[2017-10-12] MEDS: [UNRECOGNIZED DRUG - OTHER] INH SCH (08:43)
[2017-10-12] MEDS: Pregabalin 75 MG Cap PO SCH ×2 (08:43→21:08)
[2017-10-12] MEDS: Docusate Sodium 100 MG Cap PO SCH ×2 (08:43→21:08)
[2017-10-12] MEDS: Clopidogrel 75 MG Tab PO SCH (08:43)
[2017-10-12] MEDS: Bumetanide 1 MG Tab PO SCH ×2 (08:43→14:39)
[2017-10-12] MEDS ORDERED: Warfarin 2.5 MG Tab PO ONE (14:00)
[2017-10-12] MEDS: Ertapenem 1 GM Vial IVPUSH SCH (17:52)
[2017-10-12] MEDS: DAPTOmycin 500 MG Vial IV SCH (18:56)
[2017-10-13] MEDS: Insulin Aspart 100 Units/ML 3 ML Pen SUBCUT SCH ×6 (08:02→17:46)
[2017-10-13] MEDS: Clopidogrel 75 MG Tab PO SCH (08:23)
[2017-10-13] MEDS: Metoprolol Succinate 50 MG Tab.ER PO SCH (08:23)
[2017-10-13] MEDS: Bumetanide 1 MG Tab PO SCH ×2 (08:23→14:40)
[2017-10-13] MEDS: Pregabalin 75 MG Cap PO SCH ×2 (08:23→21:23)
[2017-10-13] MEDS: Insulin Detemir 100 Units/ML 3 ML Pen SUBCUT SCH ×2 (08:24→21:21)
[2017-10-13] MEDS: Docusate Sodium 100 MG Cap PO SCH ×2 (08:24→21:23)
[2017-10-13] MEDS: [UNRECOGNIZED DRUG - OTHER] INH SCH (08:25)
[2017-10-13] MEDS ORDERED: Warfarin 2.5 MG Tab PO ONE (14:00)
[2017-10-13] MEDS: Ertapenem 1 GM Vial IVPUSH SCH (17:45)
[2017-10-14] MEDS: Insulin Detemir 100 Units/ML 3 ML Pen SUBCUT SCH ×2 (09:16→22:31)
[2017-10-14] MEDS: Insulin Aspart 100 Units/ML 3 ML Pen SUBCUT SCH ×6 (09:17→17:36)
[2017-10-14] MEDS: Bumetanide 1 MG Tab PO SCH (09:18)
[2017-10-14] MEDS: Metoprolol Succinate 50 MG Tab.ER PO SCH (09:19)
[2017-10-14] MEDS: Clopidogrel 75 MG Tab PO SCH (09:20)
[2017-10-14] MEDS: Docusate Sodium 100 MG Cap PO SCH ×2 (09:20→20:09)
[2017-10-14] MEDS: Pregabalin 75 MG Cap PO SCH ×2 (09:20→20:09)
[2017-10-14] MEDS ORDERED: Bumetanide 1 MG Tab PO SCH ×2 (11:17→14:00)
[2017-10-14] MEDS ORDERED: Sodium Polystyrene Sulfonate 15 GM/60 ML Susp 60 ML Bot PO ONE (11:59)
[2017-10-14] MEDS ORDERED: Bumetanide 1 MG/4 ML MDV IVPUSH ONE (12:15)
[2017-10-14] MEDS: [UNRECOGNIZED DRUG - OTHER] INH SCH (12:45)
--- NOTE | 2017-10-14 13:15 | CR ---
Clinical history: 72-year-old male cough. Interpretation: Abnormal. Heart failure i.e. cardiovascular decompensation evident in the interval since February 2008 comparison film. Sternotomy, new supraclavicular right central venous line and cardiac pacemaker (leads intact). Increased cardiac silhouette with generalized new pulmonary venous congestion/cephalization and bibas ilar dependent pleural fluid collections (effusions) that were not evident in 2008. Underlying lower lobe atelectasis or even infiltrate a differential consideration but no lung mass or hilar lymphadenopathy. CONCLUSION: CHF.
[2017-10-14] MEDS ORDERED: Calcium Gluconate 10% 1 GM/10 ML SDV IVPUSH ONE (13:17)
[2017-10-14] MEDS: Sodium Chloride 0.9% 10 ML Syringe FLUSH PRN ×2 (13:46→18:49)
[2017-10-14] MEDS ORDERED: Warfarin 5 MG Tab PO ONE (14:00)
[2017-10-14] MEDS: DAPTOmycin 500 MG Vial IV SCH (17:10)
[2017-10-14] MEDS ORDERED: Bumetanide 1 MG/4 ML MDV IVPUSH SCH (18:00)
[2017-10-14] MEDS: Ertapenem 1 GM Vial IVPUSH SCH (18:48)
[2017-10-15] MEDS: Insulin Aspart 100 Units/ML 3 ML Pen SUBCUT SCH ×6 (08:29→17:35)
[2017-10-15] MEDS: Insulin Detemir 100 Units/ML 3 ML Pen SUBCUT SCH ×2 (09:56→21:47)
[2017-10-15] MEDS: Pregabalin 75 MG Cap PO SCH ×2 (09:59→21:47)
[2017-10-15] MEDS: Docusate Sodium 100 MG Cap PO SCH ×2 (09:59→21:47)
[2017-10-15] MEDS: Metoprolol Succinate 50 MG Tab.ER PO SCH (10:00)
[2017-10-15] MEDS: [UNRECOGNIZED DRUG - OTHER] INH SCH (10:02)
[2017-10-15] MEDS: Clopidogrel 75 MG Tab PO SCH (10:02)
[2017-10-15] MEDS ORDERED: Bumetanide 1 MG/4 ML MDV IVPUSH SCH (10:10)
[2017-10-15] MEDS ORDERED: Furosemide 40 MG/4 ML VIAL IVPUSH SCH ×2 (10:30→14:00)
[2017-10-15] MEDS: Sodium Chloride 0.9% 10 ML Syringe FLUSH PRN ×3 (12:22→18:31)
--- NOTE | 2017-10-15 12:26 | PN ---
DATE: 10/15/2017 SUBJECTIVE: Mr. Papi Sykes is a 72-year-old male with medical history significant for hypertension; hyperlipidemia; chronic history of atrial fibrillation, on chronic anticoagulation with Coumadin; coronary artery disease; recently diagnosed with osteomyelitis involving the left foot and currently under swing bed, undergoing wound cares and antibiotics. For the last 24 hours, the patient was noted to be weak and tired yesterday. Further workup showed evidence of acute congestive heart failure with systolic dysfunction, pleural effusion, pulmonary venous congestion, and was started on IV Bumex. He was also noted to have acute hyperkalemia, requiring Kayexalate, and also calcium gluconate after which his potassium has improved. REVIEW OF SYSTEMS: Cardiovascular, respiratory, gastrointestinal, neurology, constitutional were all evaluated. PHYSICAL EXAMINATION: Vital Signs: Temperature of 98, pulse of 88, blood pressure 139/92, respiratory rate of 20, saturating at 92% on 2 L oxygen. General Appearance: The patient is well oriented to time, place, and person. Follows commands spontaneously. Cardiovascular System: S1, S2 heard with normal intensity. Respiratory System: Bilateral crepitations. Decreased breath sounds at the bases. No wheeze. Abdomen: Soft. Bowel sounds are positive. Nontender. No rigidity. Extremities: 2+ edema in bilateral lower extremities. The patient is noted to have ulcers on the lateral aspect of the left foot 3 seems to be healing well. MEDICATIONS: Reviewed. 1. Continue with Tylenol 650 every 4 hours as needed for pain. 2. [place] 5/325 mg every 6 hours. 3. Albuterol inhalation as needed. 4. Plavix 75 mg daily. 5. Daptomycin 500 mg IV q.48 hours. 6. Docusate sodium 100 mg twice a day. 7. Invanz 0.5 mg IV push every daily. 8. Lasix 40 mg IV twice a day. 9. NovoLog 2 units subcutaneous three times a day and supplemental scale. 10.Levemir 18 units subcu b.i.d. 11.Toprol-XL 125 mg daily. 12.Lyrica 75 mg twice a day. 13.Coumadin, pharmacy to dose. 14.Ambien 5 mg at bedtime as needed for sleep. LABORATORY DATA: Reviewed. Sodium 140, potassium 4.4, chloride 97, bicarb 29, BUN 94, creatinine 2.3, INR 3.9. ASSESSMENT: 1. Acute congestive heart failure with systolic dysfunction. 2. Osteomyelitis involving the left foot, on antibiotics. 3. Chronic history of atrial fibrillation. 4. Chronic anticoagulation with Coumadin. 5. Type 2 diabetes mellitus. 6. Coronary artery disease. 7. Chronic kidney disease. PLAN: 1. Acute congestive heart failure. The patient's recent echocardiogram showed evidence of decreased ejection fraction to 25% to 30%. Order for an echocardiogram on this admission. Follow the echocardiogram report. He did receive Bumex 2 mg IV yesterday and has lost almost 2 pounds. We will have him on Lasix 40 mg IV q.12 hourly. Closely monitor input, output, and daily weights or might include metolazone oral also to improve his diuresis. Try to avoid any aggressive dialysis with his underlying chronic kidney disease also. 2. Osteomyelitis. The patient is currently on IV antibiotics, continue the same. Follow with ID recommendation. Continue with the wound dressings daily. 3. Atrial fibrillation. Patient's rate seems to be well controlled. The patient is currently on beta-dakota, continue the same. Continue the anticoagulation with Coumadin. Pharmacy to dose of Coumadin for therapeutic INR of 2 to 3. 4. Type 2 diabetes mellitus. Check his fingersticks with each meals, have him on supplemental scale. Continue with long-acting insulin. 5. Coronary artery disease. The patient denies any ongoing chest pain. Continue with Plavix. Continue with statin and beta-dakota. 6. Deep venous thrombosis prophylaxis. Continue with heparin. 7. Chronic kidney disease, remains stable at this time. Closely monitor his basic metabolic panel, given his IV diuretics. Avoid nephrotoxic agents. Dose adjust medications for renal function. 8. Discussed with family members at bedside. 9. Acute hyperkalemia, resolved. The patient's potassium is back to normal. Recheck a BMP in a.m. [facility] /[id number]
[2017-10-15] MEDS ORDERED: Warfarin 2.5 MG Tab PO ONE (14:00)
[2017-10-15] MEDS: Ertapenem 1 GM Vial IVPUSH SCH (18:30)
[2017-10-16] MEDS: Insulin Aspart 100 Units/ML 3 ML Pen SUBCUT SCH ×6 (08:22→18:38)
[2017-10-16] MEDS: Insulin Detemir 100 Units/ML 3 ML Pen SUBCUT SCH ×2 (09:12→21:57)
[2017-10-16] MEDS: Metoprolol Succinate 50 MG Tab.ER PO SCH (09:13)
[2017-10-16] MEDS: Clopidogrel 75 MG Tab PO SCH (09:14)
[2017-10-16] MEDS: Docusate Sodium 100 MG Cap PO SCH ×2 (09:14→21:57)
[2017-10-16] MEDS: Pregabalin 75 MG Cap PO SCH ×2 (09:14→21:56)
[2017-10-16] MEDS: Furosemide 40 MG/4 ML VIAL IVPUSH SCH (09:15)
[2017-10-16] MEDS: [UNRECOGNIZED DRUG - OTHER] INH SCH (09:16)
[2017-10-16] MEDS ORDERED: [UNRECOGNIZED DRUG - REMARK] PO SCH (14:00)
[2017-10-16] MEDS: DAPTOmycin 500 MG Vial IV SCH (18:39)
[2017-10-16] MEDS: Ertapenem 1 GM Vial IVPUSH SCH (18:40)
[2017-10-17] MEDS: Insulin Aspart 100 Units/ML 3 ML Pen SUBCUT SCH ×6 (08:40→17:23)
[2017-10-17] MEDS: Furosemide 40 MG/4 ML VIAL IVPUSH SCH (08:41)
[2017-10-17] MEDS: Metoprolol Succinate 50 MG Tab.ER PO SCH (08:41)
[2017-10-17] MEDS: [UNRECOGNIZED DRUG - OTHER] INH SCH (08:43)
[2017-10-17] MEDS: Pregabalin 75 MG Cap PO SCH ×2 (08:43→20:50)
[2017-10-17] MEDS: Clopidogrel 75 MG Tab PO SCH (08:43)
[2017-10-17] MEDS: Docusate Sodium 100 MG Cap PO SCH ×2 (08:43→20:51)
[2017-10-17] MEDS: Insulin Detemir 100 Units/ML 3 ML Pen SUBCUT SCH (08:43)
--- NOTE | 2017-10-17 09:05 | PN ---
DATE: 10/14/2017 HISTORY OF PRESENT ILLNESS: Mr. Papi Sykes is a 72-year-old male with medical history significant for hypertension, type 2 diabetes mellitus, hyperlipidemia, coronary artery disease, peripheral arterial disease, history of atrial fibrillation, on chronic anticoagulation. Admitted to the hospital for continued IV antibiotics secondary underlying osteomyelitis. Also, noted to have Enterobacter and Enterococcus requiring ertapenem and daptomycin on this admission. For the last 24 hours, the patient was complaining of having cough and also with nausea vomiting. The patient had one episode of vomiting. He denies any chest pains. Denies any shortness of breath. No abdominal pain. He was also noted to have gained weight in the last few days. He denies any chest pains at this time. REVIEW OF SYSTEMS: Cardiovascular, respiratory, gastrointestinal, neurology, constitutional were all evaluated. PHYSICAL EXAMINATION: Vital Signs: Temperature of 97.9, pulse of 88, blood pressure 146/93, respiratory rate of 20, saturating at 94% on room air. General Appearance: The patient is well oriented to time, place, and person. Follows commands spontaneously. Cardiovascular System: S1, S2 heard with normal intensity. No gallops. Respiratory System: Clear to auscultation bilaterally except for crepitations at the bases. No wheeze. Decreased breath sounds at the bases. Abdomen: Soft. Bowel sounds positive. Nontender. No rigidity. Extremities: Edema bilateral lower extremities. MEDICATIONS: 1. Tylenol 650 every 4 hours as needed for pain. 2. [place] 5/325, 6 hours as needed for pain. 3. Albuterol inhalation as needed. 4. Plavix 75 mg daily. 5. Daptomycin 500 mg IV q.48 hourly. 6. Docusate sodium 100 mg twice a day. 7. Invanz 0.5 g daily. 8. NovoLog 2 units 3 times a day along with supplemental scale. 9. Levemir 8 units subcu twice a day. 10.Toprol-XL 125 mg daily. 11.Lyrica 75 mg twice a day. 12.Coumadin, pharmacy to dose. 13.Ambien 5 mg at bedtime as needed for sleep. LABORATORY DATA: New labs ordered today, shows INR of 2.9. Sodium 137, potassium 5.6, chloride 95, bicarb 31, BUN 94, creatinine 2.5, glucose 96. B-natriuretic peptide 3020, calcium 9. ASSESSMENT: 1. Acute congestive heart failure. 2. Chronic kidney disease. 3. Hypertension. 4. Type 2 diabetes mellitus. 5. Peripheral arterial disease. 6. Osteomyelitis, on chronic antibiotics. 7. Chronic anticoagulation with Coumadin. PLAN: 1. Acute congestive heart failure. The patient is noted to have elevated B- natriuretic peptide up to 3020. He is noted to have edema to the lower extremities, and crackles to the lung on exam. Chest x-ray shows evidence of pleural effusion. Mild to moderate along with pulmonary venous congestion. We will increase the Bumex to 2 mg IV q.12 hourly. We will recheck a BNP and a BMP in a.m. We will also get a chest x-ray in a.m. and we will closely follow. Closely monitor input, output, and daily weights. 2. Atrial fibrillation. The patient continues to be in atrial fibrillation but his rate is well controlled. He is noted to be on Coumadin, continue the same. 3. Chronic kidney disease, remains stable. Try to avoid any nephrotoxic agents. Dose adjust medications for renal function. Recheck a BMP in a.m. 4. Hyperkalemia. The patient is noted to have mild hyperkalemia where his potassium is around 5.6, we will give him Kayexalate and also calcium gluconate. Twelve-lead EKG obtained at this time does not show any signs of hyperkalemia at this time. He has underlying atrial fibrillation. We will closely follow the patient. Recheck a potassium later in the day. 5. Type 2 diabetes mellitus. Blood sugars in acceptable range. He is currently on insulin regimen. Continue the same. Try to avoid any hypoglycemic episodes. [facility] /[id number]
--- NOTE | 2017-10-17 14:05 | PN ---
DATE: 10/16/2017 HISTORY OF PRESENT ILLNESS: Mr. Papi Sykes is a 72-year-old male with medical history significant for hypertension, hyperlipidemia, chronic history of atrial fibrillation, on chronic anticoagulation with Coumadin, coronary artery disease, recently diagnosed osteomyelitis involving the left foot and currently receiving IV antibiotics along with wound cares in the swing bed. For the last 24 hours, the patient was continued on diuretics with Lasix. He has a net negative balance. He denies any chest pain. His shortness of breath seems to be improving. He is able to ambulate without any difficulty. Denies any chest pain. No abdominal pain. No nausea. No vomiting. No diarrhea. No shortness of breath. REVIEW OF SYSTEMS: Cardiovascular, respiratory, gastrointestinal, neurology, constitutional were all evaluated. PHYSICAL EXAMINATION: Vital Signs: Temperature of 97.3, pulse of 74, blood pressure of 140/78, respiratory rate 20, saturating at 91% on room air. General Appearance: The patient is well oriented to time, place, and person. Follows commands spontaneously. Cardiovascular System: S1, S2 heard with normal intensity. No gallops. Respiratory System: Clear to auscultation bilaterally. No wheeze. No crepitations. Abdomen: Soft. Bowel sounds positive. Nontender. No rigidity. Extremities: 2+ edema bilateral lower extremities. Neurology: No gross focal neurological deficit. MEDICATIONS: Continue with; 1. Tylenol 650 every 4 hours as needed for pain. 2. [place] 1 tablet every 6 hours as needed for pain. 3. Albuterol inhalation. 4. Plavix 75 mg daily. 5. Daptomycin 500 mg IV q.48 hours. 6. Docusate sodium 100 mg twice a day. 7. Invanz 0.5 mg IV every 24 hours. 8. Lasix 40 mg IV twice a day. 9. NovoLog 2 units 3 times a day. 10.Levemir 8 units subcutaneous daily at bedtime. 11.Toprol-XL 125 mg daily. 12.Lyrica 75 mg twice a day. 13.Coumadin pharmacy to dose. 14.Ambien 5 mg as needed at bedtime. LABORATORY DATA: Labs ordered. INR 4.1. Sodium 143, potassium 3.7, chloride 99, bicarb 30, BUN 87, creatinine 2.2, glucose of 56. ASSESSMENT: 1. Acute on chronic congestive heart failure secondary to systolic dysfunction with ejection fraction of 25% to 30%. 2. Osteomyelitis involving the left foot on antibiotic and wound cares. 3. Chronic history of atrial fibrillation. 4. Chronic anticoagulation with Coumadin. 5. Type 2 diabetes mellitus, uncontrolled. 6. Chronic kidney disease. 7. Coronary artery disease. PLAN: 1. Acute on chronic congestive heart failure secondary to systolic dysfunction. The patient is started on IV Lasix. He has lost around 2 pounds. He has net negative balance. We will continue current dose of IV Lasix, be cautious regarding IV diuretics, given his underlying chronic kidney disease, we will closely monitor his input, output, and daily weights. 2. Osteomyelitis. The patient is currently on IV antibiotics and wound cares. Continue the same. 3. Atrial fibrillation. Rate seems to be well controlled. Continue beta dakota. Continue with Coumadin to maintain therapeutic INR of 2 to 3. 4. Type 2 diabetes mellitus. The patient is noted to have low blood sugars at times, so we will decrease Levemir to once a day at night and check his fingersticks with each meals. Avoid any hypoglycemic episodes. Have him on hypoglycemic protocol. 5. Coronary artery disease, remains stable. Denies any ongoing chest pains. 6. Chronic kidney disease, remains stable. Try to avoid any aggressive diuresis. Try to maintain euvolemic status. 7. Acute hyperkalemia, resolved. 8. We will recheck a BMP and BNP in a.m. 9. Continue with PT/OT. [facility] /[id number]
[2017-10-17] MEDS: Ertapenem 1 GM Vial IVPUSH SCH (18:07)
[2017-10-17] MEDS: Sodium Chloride 0.9% 10 ML Syringe FLUSH PRN (19:35)
[2017-10-17] MEDS ORDERED: Furosemide 40 MG/4 ML VIAL IVPUSH SCH (21:00)
[2017-10-17] MEDS ORDERED: Insulin Detemir 100 Units/ML 3 ML Pen SUBCUT SCH (21:00)
[2017-10-18] MEDS: Insulin Aspart 100 Units/ML 3 ML Pen SUBCUT SCH ×4 (07:44→12:09)
[2017-10-18] MEDS: Metoprolol Succinate 50 MG Tab.ER PO SCH (08:33)
[2017-10-18] MEDS: Clopidogrel 75 MG Tab PO SCH (08:33)
[2017-10-18] MEDS: Pregabalin 75 MG Cap PO SCH (08:33)
[2017-10-18] MEDS: Docusate Sodium 100 MG Cap PO SCH (08:33)
[2017-10-18] MEDS: [UNRECOGNIZED DRUG - OTHER] INH SCH (08:34)
[2017-10-18] MEDS: Sodium Chloride 0.9% 10 ML Syringe FLUSH PRN ×2 (08:41→13:49)
[2017-10-18] MEDS: Furosemide 40 MG/4 ML VIAL IVPUSH SCH ×2 (08:41→13:48)
[2017-10-18] MEDS ORDERED: Albumin 25% 12.5 GM/50 ML BAG IV ONE (10:15)
--- NOTE | 2017-10-18 12:24 | EKG ---
10/14/2017 - COLLIN GIMENEZ - Twelve-lead EKG shows atrial fibrillation with PVCs and incomplete bundle branch block and left anterior fascicular block. No significant ST elevation or ST depression noted on this EKG. PVCs noted. [facility] /[id number]
--- NOTE | 2017-10-19 12:46 | DISCH ---
ADMITTING DIAGNOSES: 1. Osteomyelitis, requiring IV antibiotic with Invanz and daptomycin. 2. Chronic history of atrial fibrillation and chronic congestive heart failure with systolic dysfunction, decreased ejection fraction to less than 25%. 3. Type 2 diabetes mellitus. DISCHARGE DIAGNOSES: 1. Valvu-cu-lyyekkf congestive heart failure, secondary to systolic dysfunction with EF of less than 25%. 2. Iqmsu-wf-ccfxdvv renal failure. 3. Type 2 diabetes mellitus. 4. Chronic osteomyelitis involving the left foot, requiring long-term IV antibiotics. HISTORY OF PRESENT ILLNESS: Mr. Pito Turpin is a 72-year-old male with medical history significant for hypertension; type 2 diabetes mellitus; hyperlipidemia; chronic congestive heart failure, status post AICD placed; chronic kidney disease; recently, got a diagnosis of osteomyelitis involving the left foot and got admitted to [facility] for continued IV antibiotics, and in the last 4 to 5 days, the patient was experiencing increasing shortness of breath and increased weight and noted to be in nmnyc-tn-[id number] congestive heart failure. His BNP was elevated up to 3000 and requiring IV Lasix and IV Bumex. Initially, he responded well to the diuretics, but later on, he had complications with tmtoi-we-mkmywzk renal failure and also decreased urine output. With this condition, he would need higher level of care, and he is being discharged to higher level of care to [facility] where he has been receiving his cares in the past, so he is discharged to [facility] for further evaluation and treatment of his fmhba-ud-qhxgbfh congestive heart failure and otezz-gm-mdpegqa kidney disease and would deny further workup and treatment with Nephrology consultation and Cardiology consultation over there. He is discharged to [facility] in stable condition. He would need an ambulance ride given his ovmbx-kd-ohtnwvo congestive heart failure and shortness of breath. He will go by ambulance in stable condition. PHYSICAL EXAMINATION: Physical examination on the day of discharge: Vital Signs: Temperature of 97.7, pulse of 84, blood pressure 137/73, respiratory rate of 20, and saturating at 98%. General Appearance: The patient is well oriented to time, place, and person. Follows commands spontaneously. Cardiovascular System: S1 and S2 heard with normal intensity. No gallops. Respiratory System: Clear to auscultation bilaterally except for crepitations at the bases and decreased breath sounds at the base. No wheeze. Abdomen: Soft. Bowel sounds positive. Nontender. No rigidity. Extremities: Edema of 2+ in bilateral lower extremities, and wounds noted on the left lateral foot with osteomyelitis. Neurology: No gross focal neurological deficits. DISCHARGE MEDICATIONS: Include: 1. Hecker one tablet every 6 hours as needed for pain. 2. Albuterol two-puff inhalation every 4 hours as needed for shortness of breath. 3. Aspirin 325 mg daily. 4. Bumex 0.5 tablet oral twice a day. 5. Plavix 75 mg daily. 6. Clotrimazole topical as needed. 7. Daptomycin 500 mg IV every 48 hours. 8. Docusate sodium 100 mg daily. 9. Invanz of 0.5 g IV every 24 hours. 10.Lantus 8 units subcu twice a day. 11.NovoLog 2 units subcutaneous three times a day. 12.Metolazone 1.25 mg oral every other day. 13.Toprol-XL 100 mg daily. 14.Pregabalin 75 mg twice a day. 15.Senokot two tablets twice a day. CONDITION ON ADMISSION: Good. CONDITION ON DISCHARGE: Good. DISPOSITION: Discharged to [facility] for further management of acute-on- chronic congestive heart failure and fzawp-kw-rkfvwhe kidney failure. ACTIVITY: As tolerated. DIET: Cardiac healthy diet and consistent carbohydrate diet. FOLLOWUP: Follow with primary care physician after getting discharged from [facility]. [facility] /[id number]
== END 2017-10-18 15:25 | DRG 539 ==
LOC: UNDOADMIN 13:51 → DL.MS 13:51
PROVIDERS: ADMIT Internal Medicine; ATTEND Internal Medicine
DX: M86.9 Osteomyelitis, unspecified (principal); I50.23 Acute on chronic systolic (congestive) heart failure; I13.0 Hypertensive heart and chronic kidney disease with heart failure and stage 1 through stage 4 chronic kidney disease, or unspecified chronic kidney disease; B95.2 Enterococcus as the cause of diseases classified elsewhere; B96.89 Other specified bacterial agents as the cause of diseases classified elsewhere; I48.91 Unspecified atrial fibrillation; E11.9 Type 2 diabetes mellitus without complications; I25.10 Atherosclerotic heart disease of native coronary artery without angina pectoris; J44.9 Chronic obstructive pulmonary disease, unspecified; E78.5 Hyperlipidemia, unspecified; E87.5 Hyperkalemia; N18.3 Chronic kidney disease, stage 3 (moderate); I73.9 Peripheral vascular disease, unspecified; R11.2 Nausea with vomiting, unspecified; Z88.8 Allergy status to other drugs, medicaments and biological substances; Z79.02 Long term (current) use of antithrombotics/antiplatelets; Z79.82 Long term (current) use of aspirin; Z79.4 Long term (current) use of insulin; Z79.899 Other long term (current) drug therapy
CPT/HCPCS: 36415; 71010; 80048; 80076; 82550; 82565; 82962; 83880; 84450; 84460; 85025; 85610; 85651; 86140; 93005; 93306; 94010; 94667; 97110-GO; 97110-GP; 97116-GP; 97162-GP; 97165-GO; 97530-GO; 99211; A9270-GY; J0610; J0878; J1335; J1644; J1650; J1815-GY; J1940; J7050; S0171